=== PATIENT | male | born 1970 | race Caucasian/White ===

== ENCOUNTER 2019-03-13 08:53 | Emergency (ER) | payer OTHER ==
[~2019-03-13] VITALS: Ht 190.5 cm; Wt 108.9 kg
[2019-03-13] MEDS ORDERED: Motrin,Rufen800 MG PO (10:05)
== END 2019-03-13 10:40 | disposition home or self-care (01) ==
LOC: ED 08:53
DX: T23.632A Corrosion of second degree of multiple left fingers (nail), not including thumb, initial encounter (principal); T54.2X1A Toxic effect of corrosive acids and acid-like substances, accidental (unintentional), initial encounter; Y93.89 Activity, other specified; Y92.69 Other specified industrial and construction area as the place of occurrence of the external cause; Y99.8 Other external cause status